=== PATIENT | male | born 1985 | race Two or more races ===

== ENCOUNTER 2023-06-22 18:39 | Inpatient (IN) | payer MEDICAID, OTHER ==
[~2023-06-22] VITALS: Ht 200.7 cm; Wt 59.6 kg
[~2023-06-22 18:39] MED LIST: BENZ1TAB84 PO; OLAN7.5T22 PO; QUET200T PO
[2023-06-22 19:37] LABS: BASOPHILS % (AUTO) 0.6 % (0.0-2.0); EOSINOPHILS % (AUTO) 0.1 % (1.0-6.0); HEMATOCRIT 44.1 % (41-53); HEMOGLOBIN 14.9 g/dL (13.5-17.5); LYMPHOCYTES # (AUTO) 1.8 K/uL (1.0-4.8); LYMPHOCYTES % (AUTO) 21.9 % (22.0-44.0); MEAN CORPUSCULAR HEMOGLOBIN 29.8 pg (26.0-34.0); MEAN CORPUSCULAR HGB CONC 33.7 G/dL (31.0-37.0); MEAN CORPUSCULAR VOLUME 89 fL (80-100); MONOCYTES # (AUTO) 0.4 K/uL (0.1-1.0); MONOCYTES % (AUTO) 5.2 % (2.0-9.0); NEUTROPHILS % (AUTO) 72.2 % (40.0-70.0); PLATELET COUNT (AUTO) 239 K/uL (150-450); RED BLOOD CELL COUNT(AUTO) 4.99 MIL/uL (4.50-5.90); RED CELL DISTRIBUTION WIDTH 13.4 % (11.5-14.5); WHITE BLOOD COUNT (AUTO) 8.4 K/uL (4.5-11.0)
[2023-06-22 19:44] LABS: ANION GAP 6 mmol/L (8-16); CALCIUM, TOTAL 9.4 mg/dL (8.8-10.5); CARBON DIOXIDE 31 mmol/L (22-29); CHLORIDE 104 mmol/L (98-107); CREATININE 1.21 mg/dL (0.60-1.30); GLOMERULAR FILTR. RATE CALC > 60 mL/min (>60); GLUCOSE,RANDOM 116 mg/dL (70-110); POTASSIUM 3.1 mmol/L (3.5-5.1); SODIUM SERUM 141 mmol/L (136-145); UREA NITROGEN, BLOOD 12 mg/dL (7-18)
[2023-06-22 19:50] LABS: ALANINE AMINOTRANSFERASE 26 U/L (12-78); ALBUMIN 4.5 g/dL (3.4-5.0); ALKALINE PHOSPHATASE 65 U/L (46-116); ASPARTATE AMINOTRANSFERASE 16 U/L (15-37)
[2023-06-22 19:54] LABS: ALCOHOL, BLOOD (SERUM) < 3 mg/dL (0-10)
[2023-06-22 21:49] LABS: COVID AG,FIA SOURCE NASOPHARYNGEAL
[2023-06-22 22:06] LABS: SARS-COV2 (COVID) ANTIGEN,FIA Negative (Negative)
[2023-06-22 22:36] LABS: ALCOHOL, URINE DRUG SCREEN NEGATIVE (NEGATIVE); AMPHET/METH SCREEN,URINE NEGATIVE (NEGATIVE); BARBITURATE SCREEN, URINE NEGATIVE (NEGATIVE); BENZODIAZEPINES SCREEN,URINE NEGATIVE (NEGATIVE); CANNABINOID SCREEN,URINE NEGATIVE (NEGATIVE); COCAINE SCREEN,URINE NEGATIVE (NEGATIVE); METHADONE SCREEN, URINE NEGATIVE (NEGATIVE); OPIATE SCREEN,URINE NEGATIVE (NEGATIVE); PHENCYCLIDINE SCREEN,URINE NEGATIVE (NEGATIVE)
[2023-06-22] MEDS ORDERED: HALOPERIDOL 5 MG TABLET PO PRN (22:45)
[2023-06-22] MEDS ORDERED: LORazepam 2 MG TABLET PO PRN (22:45)
[2023-06-22 23:01] LABS: APPEARANCE,URINE CLEAR (CLEAR); BILIRUBIN,URINE NEGATIVE (NEGATIVE); COLOR,URINE YELLOW (YELLOW); GLUCOSE, URINE (UA) NEGATIVE (NEGATIVE); KETONES,URINE 40-60 mg/dL (NEGATIVE); LEUKOCYTE ESTERASE ,URINE NEGATIVE (NEGATIVE); NITRATE,URINE NEGATIVE (NEGATIVE); OCCULT BLOOD,URINE NEGATIVE (NEGATIVE); PROTEIN,URINE 30-70 mg/dL (NEGATIVE); SPECIFIC GRAVITIY, URINE 1.032 (1.003-1.030)
[2023-06-22 23:04] LABS: BACTERIA,URINE None Seen /HPF (None Seen); RBC,URINE None Seen /HPF (0-2); SQUAMOUS EPITHELIAL CELL,UR Few /LPF (None Seen); WBC,URINE None Seen /HPF (0-5)
[2023-06-22] MEDS: POTASSIUM CHLORIDE 20 MEQ ER TABLET PO ONE ×2 (23:44→23:47)
[2023-06-23] MEDS: POTASSIUM CHLORIDE 20 MEQ ER TABLET PO ONE (00:15)
[2023-06-23] MEDS: ZOLPIDEM TARTRATE 10 MG TABLET PO PRN ×2 (00:27→21:15)
[2023-06-23 00:40] VITALS: BP 133/71; PULSE 94; RESP 20; TEMP 97.1
[2023-06-23 00:42] VITALS: BP 133/71; PULSE 94; RESP 20; TEMP 97.1
[2023-06-23] MEDS ORDERED: BACITRACIN 28 GM OINTMENT TP PRN (05:15)
[2023-06-23] MEDS ORDERED: DOCUSATE SODIUM 100 MG CAPSULE PO PRN (05:15)
[2023-06-23] MEDS ORDERED: ALBUTEROL SULFATE HFA 90 MCG/PUFF 8 GM INHALER IH PRN (05:15)
[2023-06-23] MEDS ORDERED: ONDANSETRON HCL 4 MG TABLET PO PRN (05:15)
[2023-06-23] MEDS ORDERED: OMEPRAZOLE 20 MG CAPSULE PO PRN (05:15)
[2023-06-23] MEDS ORDERED: CloNIDine HCL 0.1 MG TABLET PO PRN (05:15)
[2023-06-23] MEDS ORDERED: MAG HYDROX/AL HYDROX/SIMETH ES 30 ML SUSPENSION UDCUP PO PRN (05:15)
[2023-06-23] MEDS ORDERED: IBUPROFEN 600 MG TABLET PO PRN (05:15)
[2023-06-23] MEDS ORDERED: MAGNESIUM HYDROXIDE SUSPENSION 30 ML UDCUP PO PRN (05:15)
[2023-06-23] MEDS ORDERED: POTASSIUM CHLORIDE 20 MEQ ER TABLET PO ONE (05:15)
[2023-06-23] MEDS ORDERED: ACETAMINOPHEN 325 MG TABLET PO PRN (05:15)
[2023-06-23] MEDS ORDERED: LOPERAMIDE HCL 2 MG CAPSULE PO PRN (05:15)
[2023-06-23] MEDS ORDERED: BENZOCAINE/MENTHOL LOZENGE PO PRN (05:15)
[2023-06-23] MEDS ORDERED: PETROLATUM,WHITE 28 GM JELLY TP PRN (05:15)
[2023-06-23] MEDS ORDERED: RisperiDONE MICROSPHERES 50 MG/2 ML SYRINGE IM SCH (11:45)
[2023-06-23] MEDS: BENZTROPINE MESYLATE 2 MG TABLET PO SCH (16:39)
[2023-06-23 20:02] VITALS: BP 129/82; PULSE 87; RESP 18; TEMP 97.4
[2023-06-24] MEDS: BENZTROPINE MESYLATE 2 MG TABLET PO SCH ×2 (08:16→16:23)
[2023-06-24 09:05] VITALS: BP 141/61; PULSE 105; RESP 18; TEMP 97.6
[2023-06-24 20:51] VITALS: BP 126/85; PULSE 85; RESP 18; TEMP 97.9
[2023-06-24] MEDS: ZOLPIDEM TARTRATE 10 MG TABLET PO PRN (21:00)
[2023-06-25] MEDS: BENZTROPINE MESYLATE 2 MG TABLET PO SCH ×2 (07:48→16:26)
[2023-06-25 08:00] VITALS: BP 109/73; PULSE 100; RESP 18; TEMP 97.6
[2023-06-25 20:47] VITALS: BP 135/80; PULSE 96; RESP 18; TEMP 98
[2023-06-26] MEDS: BENZTROPINE MESYLATE 2 MG TABLET PO SCH ×2 (08:18→16:48)
[2023-06-26 08:40] VITALS: BP 124/75; PULSE 63; RESP 18; TEMP 97.5
[2023-06-26] MEDS: ZOLPIDEM TARTRATE 10 MG TABLET PO PRN (21:43)
[2023-06-26 22:06] VITALS: BP 126/76; PULSE 68; RESP 18; TEMP 97.4
[2023-06-27 08:32] VITALS: BP 143/92; PULSE 106; RESP 18; TEMP 97.1
[2023-06-27] MEDS: BENZTROPINE MESYLATE 2 MG TABLET PO SCH ×2 (11:14→17:09)
[2023-06-27 21:02] VITALS: RESP 18
[2023-06-27] MEDS: ZOLPIDEM TARTRATE 10 MG TABLET PO PRN (21:20)
[2023-06-28 10:17] VITALS: BP 140/98; PULSE 62; RESP 18; TEMP 97
[2023-06-28] MEDS: BENZTROPINE MESYLATE 2 MG TABLET PO SCH ×2 (12:07→16:21)
[2023-06-28] MEDS: ZOLPIDEM TARTRATE 10 MG TABLET PO PRN (20:58)
[2023-06-28 21:30] VITALS: RESP 18
[2023-06-29] MEDS: BENZTROPINE MESYLATE 2 MG TABLET PO SCH ×2 (08:44→16:28)
[2023-06-29 11:26] VITALS: BP 126/87; PULSE 63; RESP 16; TEMP 98.3
== END 2023-06-29 17:47 | disposition home or self-care (01) | DRG 750 ==
LOC: EMS 18:40 → 3EC 23:00
PROVIDERS: ADMIT Psychiatry & Neurology Psychiatry; ATTEND Psychiatry & Neurology Psychiatry
DX: F20.9 Schizophrenia, unspecified (principal); F31.30 Bipolar disorder, current episode depressed, mild or moderate severity, unspecified; E87.6 Hypokalemia; F41.9 Anxiety disorder, unspecified; Z20.822 Contact with and (suspected) exposure to COVID-19; G47.00 Insomnia, unspecified; K59.00 Constipation, unspecified
CPT/HCPCS: 80053; 80307; 81001; 84132; 85025; 99285; G0480; J2794